=== PATIENT | male | born 1965 | race Caucasian/White ===

== ENCOUNTER 2018-12-05 09:10 | Inpatient (IN) | payer OTHER ==
[~2018-12-05] VITALS: Ht 172.7 cm; Wt 181.4 kg
--- NOTE | 2018-12-05 09:10 | NUR ---
PACIENTE ALERTA Y ORIENTADO X3. SE OBSERVA DIFICULTAD RESPIRATORIA, RESPIRACIONES FORZADAS Y DEDOS DE [place] CON CIANOSIS. PACIENTE REFIERE VENIR POR DIFICULTAD RESPIRATORIA. PACIENTE SATURANDO 66% OXIGENACION MANUAL. SE UBICA EN AREA DE CRITICO EN CAMA #1 CONECTADO A MONITOR CARDIACO Y OXIMETRIA DE PUL[place]. SE NOTIFICO A DR. ALVA EL CUAL EVALUA A PACIENTE. SE NOTIFICO A PERSONAL DE TERAPIA RESPIRATORIA.
--- NOTE | 2018-12-05 09:27 | NUR ---
PACIENTE ALERTA Y ORIENTADO X3. EN CAMA 1 DE CRITICO EN POSICION SEENTADO CON BARANDAS ELEVADAS Y INTERCOM ACCESIBLE. SE OBSERVA DISTRES RESPIRATORIA, RESPIRACIONES FORZADAS. SE ORIENTA SOBRE TX Y PROCEDIMIENTO A REALIZAR Y REFIERE ENTENDER. SE REALIZO MUESTRAS DE LABORATORIO BAJO MEDIDAS AAEPTICAS. SE REALIZO DOS CANALIZACIONES EN BRAZO R+ BAJO MEDIDAS ASEPTICAS Y PATENTES. SE ADMINISTRO MEDICAMENTOS CYNTHIA ORDEN MEDICA. SE COMENZO DRIP DE TRIDIL 50MG/250ML D5W BAJANDO A 3ML/HR. MR. ROSAS INSERTO SONDA URINARIA Y KAILYN MUESTRA DE [place]. PROCEDIMIENTO REALIZADO BAJO MEDIDAS ESTERILES. PACIENTE ELIMINO 200 ML DE ORINA AMARILLO INTENSO. PERSONAL DE TERAPIA RESPIRATORIA REALIZO ABG A PACIENTE.MAS ADELANTE LE COLOCARON BIPAP A PACIENTE, EPAP EN 6, IPAP 14, FIO2 100%, R24. PACIENTE COMENZO A SATURAR LUEGO ENTRE 94-96%. PACIENTE REFIERE SENTIRSE MEJOR MICHAEL AUN SE NOTA LA DIFICULTAD RESPIRATORIA. YA NO PRESENTA CIANOSIS EN LOS DEDOS DE [place]. PACIENTE REFIRIO GEMA TENIDO CONTACTO CON PACIENTE CON MENINGITIS. SE NOTIFICO A DR. ALVA. SE MANTIENE BAJO OBSERVACION POR CAMBIOS SIGNIFICATIVOS.
== END 2018-12-05 11:24 | disposition expired | DRG 190 ==
LOC: ER 09:10 → ICU-2 11:17
PROVIDERS: ADMIT Internal Medicine
PROC: 5A09357 Assistance with Respiratory Ventilation, Less than 24 Consecutive Hours, Continuous Positive Airway Pressure (ICD-10-PCS; principal; 2018-12-05)
PROC: 3E0F7GC Introduction of Other Therapeutic Substance into Respiratory Tract, Via Natural or Artificial Opening (ICD-10-PCS; 2018-12-05)
PROC: 4A12X4Z Monitoring of Cardiac Electrical Activity, External Approach (ICD-10-PCS; 2018-12-05)
PROC: 8E0ZXY6 Isolation (ICD-10-PCS; 2018-12-05)
DX: J44.1 Chronic obstructive pulmonary disease with (acute) exacerbation (principal); G93.41 Metabolic encephalopathy; A41.89 Other specified sepsis; R65.21 Severe sepsis with septic shock; J81.1 Chronic pulmonary edema; E66.2 Morbid (severe) obesity with alveolar hypoventilation; E87.2 Acidosis; I16.0 Hypertensive urgency; J10.1 Influenza due to other identified influenza virus with other respiratory manifestations; R23.0 Cyanosis; I10 Essential (primary) hypertension; E11.9 Type 2 diabetes mellitus without complications; B35.3 Tinea pedis; Z66 Do not resuscitate; Z99.81 Dependence on supplemental oxygen